=== PATIENT | male | born 1935 | race Asian ===

== ENCOUNTER 2020-01-25 15:21 | Emergency (ER) | payer MEDICARE, MEDICAID ==
[~2020-01-25] VITALS: Ht 167.6 cm; Wt 81.6 kg
[2020-01-25 15:30] VITALS: BP 118/62
--- NOTE | 2020-01-25 15:30 | NUR ---
ED Nurse Note: Pt brought in by ambulance from [facility] s/p syncopal, ground level fall. Denies head injury. Pt c/o right leg pain. Pt is SOB, with Ow sat 96% on room air. HR 60 on the monitor. All other vitals stable as documented. A+Ox4, uzbek speaking. Denies n/v/d.
--- NOTE | 2020-01-25 16:09 | NUR ---
ED Nurse Note: urine sent to lab, xray @ bedside
[2020-01-25 16:10] LABS: HEMOGLOBIN 8.2 G/DL (14.2-18.0); MEAN CORPUSCULAR VOLUME 110 FL (80-99); PLATELET COUNT 50 K/UL (150-450); RED BLOOD COUNT 2.37 M/UL (4.70-6.10); RED CELL DISTRIBUTION WIDTH 17.5 % (11.6-14.8); WHITE BLOOD COUNT 5.3 K/UL (4.8-10.8)
--- NOTE | 2020-01-25 16:16 | Emergency Room Report ---
History of Present Illness General Chief Complaint: Multiple Trauma/Fall Source: Patient Present Illness HPI This patient is brought in by EMS. He was also accompanied by his daughter who witnessed the episode he presents for. The patient was at an auto shop awaiting his vehicle to be repaired. He and his daughter are standing together. She states that suddenly he crumpled to the ground and lost consciousness for about 10 seconds. She states that she had been holding onto his arm and so she was able to stop him from falling and hitting his head. Per report, initially he had been complaining of pain in his right leg. He states that the pain is completely gone. His daughter reports that he has had a lot of pain related to arthritis. He has been getting cortisone injections into his joints for the pain in his joints. There is been no recent illness. There is been no fever or chills. There is been no chest pain or shortness of breath. He has had no abdominal pain. There is been no dysuria or hematuria. He has been in his normal state of health. He does have significant past medical history of congestive heart failure status post CABG. The daughter notes that she has seen that his abdomen has become larger and he has had a decreased appetite over the past few days. The patient himself has no complaints and states that he would like to go home. With further discussion with the patient's daughter and the patient, he agreed to a basic evaluation to include a blood draw, chest x-ray and EKG. Allergies: Coded Allergies: No Known Allergies (Unverified , 01/25/20) COVID-19 Screening Contact w/high risk pt: No Experienced COVID-19 symptoms?: No COVID-19 Testing performed MALT LOADER: No Patient History Past Medical History: see triage record, DM, HTN, SD, CAD, CHF Past Surgical History: CABG Social History: Denies: smoking, alcohol use, drug use Reviewed Nursing Documentation: PMH: Agreed; PSxH: Agreed Nursing Documentation-PMH Past Medical History: No History, Except For Hx Hypertension: Yes Hx Diabetes: Yes Review of Systems All Other Systems: negative except mentioned in HPI Physical Exam Vital Signs Date Time Temp Pulse Resp B/P (MAP) Pulse Ox O2 Delivery O2 Flow Rate FiO2 01/25/20 15:20 97.5 55 16 92/51 (65) 96 Room Air Sp02 EP Interpretation: reviewed, normal General Appearance: no apparent distress, alert, GCS 15, non-toxic Head: normocephalic, atraumatic Eyes: bilateral eye normal inspection, bilateral eye PERRL ENT: hearing grossly normal, normal pharynx, no angioedema, normal voice Neck: normal inspection, full range of motion, supple/symm/no masses Respiratory: chest non-tender, no respiratory distress, no retraction, no accessory muscle use, rales, speaking full sentences Cardiovascular #1: regular rate, rhythm, no edema Gastrointestinal: normal bowel sounds, non tender, soft, no guarding, no rebound, distended Rectal: deferred Musculoskeletal: normal inspection, back normal, normal range of motion, gait/ station normal - Normal for this patient/age., non-tender, swelling - +1 pitting edema Neurologic: alert, motor strength/tone normal, oriented x3, sensory intact, responsive, speech normal Psychiatric: judgement/insight normal, memory normal, mood/affect normal, no suicidal/homicidal ideation Skin: other - ecchymosis on R. forearm Medical Decision Making Diagnostic Impression: Primary Impression: Syncope Additional Impressions: Anemia Renal failure Thrombocytopenia CHF exacerbation ER Course This elderly male is found to have multiple abnormal findings on his work-up. He has anemia and thrombocytopenia. He also has renal failure. I am unsure of the acuity of these findings on laboratory work-up. The patient has never been at this facility and I do not have any comparison labs. The daughter the patient did not know if any of these findings are baseline for this patient. I did page the patient's primary care physician but at the time of this dictation this physician Dr. Carrie Tovar has not yet called back. I had planned on admitting this patient for further work-up for not only his syncope but his anemia, renal failure and thrombocytopenia. Further, I am concerned he also has a CHF exacerbation given the lower extremity edema and abdominal swelling that is likely ascites. Apparently, the patient's family member about a month ago and he has been depressed. I impressed upon the patient's daughter and the patient that he should be admitted for these findings. However, the patient adamantly refused. The daughter was bedside with the patient and states that she will have her father follow-up closely with his primary care physician who he trusts. She indicated understanding of his medical condition as did he. It was explained that if his anemia were to worsen or if he had a GI bleed he could potentially from this. The patient continued to decline admission to the hospital. The patient left AGAINST MEDICAL ADVICE. Laboratory Tests Test 01/25/20 16:00 01/25/20 17:45 White Blood Count 5.3 K/UL (4.8-10.8) 5.5 K/UL (4.8-10.8) Red Blood Count 2.37 M/UL (4.70-6.10) L 2.36 M/UL (4.70-6.10) L Hemoglobin 8.2 G/DL (14.2-18.0) L 8.2 G/DL (14.2-18.0) L Hematocrit 26.0 % (42.0-52.0) L 26.4 % (42.0-52.0) L Mean Corpuscular Volume 110 FL (80-99) H 112 FL (80-99) H Mean Corpuscular Hemoglobin 34.6 PG (27.0-31.0) H 34.8 PG (27.0-31.0) H Mean Corpuscular Hemoglobin Concent 31.6 G/DL (32.0-36.0) L 31.1 G/DL (32.0-36.0) L Red Cell Distribution Width 17.5 % (11.6-14.8) H 16.6 % (11.6-14.8) H Platelet Count 50 K/UL (150-450) L 51 K/UL (150-450) L Mean Platelet Volume 8.1 FL (6.5-10.1) 8.7 FL (6.5-10.1) Neutrophils (%) (Auto) % (45.0-75.0) 66.6 % (45.0-75.0) Lymphocytes (%) (Auto) % (20.0-45.0) 18.3 % (20.0-45.0) L Monocytes (%) (Auto) % (1.0-10.0) 10.7 % (1.0-10.0) H Eosinophils (%) (Auto) % (0.0-3.0) 2.8 % (0.0-3.0) Basophils (%) (Auto) % (0.0-2.0) 1.7 % (0.0-2.0) Differential Total Cells Counted 100 Neutrophils % (Manual) 69 % (45-75) Lymphocytes % (Manual) 19 % (20-45) L Monocytes % (Manual) 9 % (1-10) Eosinophils % (Manual) 1 % (0-3) Basophils % (Manual) 2 % (0-2) Band Neutrophils 0 % (0-8) Platelet Estimate Decreased L Platelet Morphology Normal Polychromasia 1+ Hypochromasia 1+ Anisocytosis 1+ Macrocytosis 2+ Urine Color Pale yellow Urine Appearance Clear Urine pH 5 (4.5-8.0) Urine Specific [place] 1.010 (1.005-1.035) Urine Protein 2+ (NEGATIVE) H Urine Glucose (UA) Negative (NEGATIVE) Urine Ketones Negative (NEGATIVE) Urine Blood Negative (NEGATIVE) Urine Nitrite Negative (NEGATIVE) Urine Bilirubin Negative (NEGATIVE) Urine Urobilinogen Normal MG/DL (0.0-1.0) Urine Leukocyte Esterase Negative (NEGATIVE) Urine RBC 0-2 /HPF (0 - 0) H Urine WBC 0-2 /HPF (0 - 0) Urine Squamous Epithelial Cells None /LPF (NONE/OCC) Urine Bacteria Occasional /HPF (NONE) Urine Hyaline Casts 10-15 /LPF (NONE) H Sodium Level 138 MMOL/L (136-145) Potassium Level 5.1 MMOL/L (3.5-5.1) Chloride Level 106 MMOL/L (98-107) Carbon Dioxide Level 20 MMOL/L (21-32) L Anion Gap 12 mmol/L (5-15) Blood Urea Nitrogen 50 mg/dL (7-18) H Creatinine 2.5 MG/DL (0.55-1.30) H Estimated Glomerular Filtration Rate 24.8 mL/min (>60) Glucose Level 118 MG/DL (74-106) H Calcium Level 8.9 MG/DL (8.5-10.1) Total Bilirubin 0.5 MG/DL (0.2-1.0) Aspartate Amino Transferase (AST) 29 U/L (15-37) Alanine Aminotransferase (ALT) 27 U/L (12-78) Alkaline Phosphatase 76 U/L (46-116) Total Creatine Kinase 150 U/L (26-308) Troponin I 0.003 ng/mL (0.000-0.056) Pro-B-Type Natriuretic Peptide 5032 pg/mL (0-125) H Total Protein 7.5 G/DL (6.4-8.2) Albumin 3.8 G/DL (3.4-5.0) Globulin 3.7 g/dL Albumin/Globulin Ratio 1.0 (1.0-2.7) EKG Diagnostic Results Rate: bradycardiac Rhythm: other - S.callie ST Segments: no acute changes Other Impression RBBB Rhythm Strip Diag. Results EP Interpretation: yes Rate: 50's Rhythm: no PVC's, no ectopy, other - S.callie Chest X-Ray Diagnostic Results Chest X-Ray Diagnostic Results : Chest X-Ray Ordered: Yes # of Views/Limited/Complete: 1 View Indication: Other EP Interpretation: Yes Interpretation: no consolidation, no effusion, no pneumothorax, no acute cardiopulmonary disease Impression: No acute disease Electronically Signed by: Kiera Puri DO Last Vital Signs Date Time Temp Pulse Resp B/P (MAP) Pulse Ox O2 Delivery O2 Flow Rate FiO2 01/25/20 15:20 97.5 55 16 92/51 (65) 96 Room Air Status: improved Disposition: AGAINST MEDICAL ADVICE Condition: Serious Referrals: NON PHYSICIAN (PCP) Kiera Puri DO Jan 25, 2020 16:16
[2020-01-25 16:27] LABS: ANION GAP 12 mmol/L (5-15); BLOOD UREA NITROGEN 50 mg/dL (7-18); CALCIUM 8.9 MG/DL (8.5-10.1); CARBON DIOXIDE 20 MMOL/L (21-32); CHLORIDE 106 MMOL/L (98-107); CREATININE 2.5 MG/DL (0.55-1.30); POTASSIUM 5.1 MMOL/L (3.5-5.1); SODIUM 138 MMOL/L (136-145)
[2020-01-25 16:39] LABS: ALANINE AMINOTRANSFERASE 27 U/L (12-78); ALBUMIN 3.8 G/DL (3.4-5.0); ALKALINE PHOSPHATASE 76 U/L (46-116); ASPARTATE AMINO TRANSFERASE 29 U/L (15-37); BILIRUBIN,TOTAL 0.5 MG/DL (0.2-1.0); CREATINE KINASE 150 U/L (26-308)
[2020-01-25 16:54] LABS: APPEARANCE,URINE CLEAR; BILIRUBIN, URINE NEGATIVE (NEGATIVE); COLOR,URINE PALE YELLOW; GLUCOSE, URINE (UA) NEGATIVE (NEGATIVE); KETONES,URINE NEGATIVE (NEGATIVE); LEUKOCYTE ESTERASE ,URINE NEGATIVE (NEGATIVE); NITRITE,URINE NEGATIVE (NEGATIVE); PH,URINE 5 (4.5-8.0); PROTEIN,URINE 2+ (NEGATIVE); UROBILINOGEN,URINE NORMAL MG/DL (0.0-1.0)
--- NOTE | 2020-01-25 17:26 | NUR ---
ED Nurse Note: CBC sent to lab
[2020-01-25 18:03] LABS: HEMATOCRIT 26.4 % (42.0-52.0); HEMOGLOBIN 8.2 G/DL (14.2-18.0); MEAN CORPUSCULAR VOLUME 112 FL (80-99); PLATELET COUNT 51 K/UL (150-450); RED BLOOD COUNT 2.36 M/UL (4.70-6.10); RED CELL DISTRIBUTION WIDTH 16.6 % (11.6-14.8); WHITE BLOOD COUNT 5.5 K/UL (4.8-10.8)
--- NOTE | 2020-01-25 18:08 | Diagnostic Imaging Report ---
Indication: Chest pain Technique: One view of the chest Comparison: none Findings: There is atelectasis and possibly some pleural fluid at the left lung base. Lungs pleural spaces are otherwise clear. The heart size is upper limits of normal. There is evidence of prior CABG Impression: Left basilar atelectasis and possible pleural fluid
[2020-01-25 18:11] LABS: BASOPHILS % (AUTO) 1.7 % (0.0-2.0); EOSINOPHILS % (AUTO) 2.8 % (0.0-3.0); LYMPHOCYTES % (AUTO) 18.3 % (20.0-45.0); MONOCYTES % (AUTO) 10.7 % (1.0-10.0); NEUTROPHILS % (AUTO) 66.6 % (45.0-75.0)
[2020-01-25 18:51] VITALS: BP 125/74
--- NOTE | 2020-01-25 18:51 | NUR ---
AMA: SEE AMA FORM. Pt's daughter at bedside. Pt and daughter both aware that ED MD wants to admit patient upstairs. Pt's daughter attempting to convince patient to stay, but he wants to go home. Pt and daughter both aware of risks of leaving. ED MD, nurse and charge nurse explained benefits of staying and risks of leaving. Pt still refused. Lao speaking staff translated for patient as well as daughter, pt verbalized understanding of risks and still refused to stay. AMA form signed by patient and doctor. IV and ID removed. Pt in stable condition, A+Ox4, no acute distress noted. Pt wheeled out to private vehicle safely.
--- NOTE | 2020-01-25 18:51 | NUR ---
ED Nurse Note: pt to see PMD tomorrow. lab report provided for patient to give to PMD
== END 2020-01-25 18:51 | disposition left against medical advice (07) ==
LOC: EDBD 15:21 → EMR 15:52 → CANBEDREQ 18:51
DX: R55 Syncope and collapse (principal); D64.9 Anemia, unspecified; N19 Unspecified kidney failure; D69.6 Thrombocytopenia, unspecified; I50.9 Heart failure, unspecified; E11.9 Type 2 diabetes mellitus without complications; I10 Essential (primary) hypertension; I25.2 Old myocardial infarction; Z95.1 Presence of aortocoronary bypass graft; Z53.29 Procedure and treatment not carried out because of patient's decision for other reasons
CPT/HCPCS: 36415; 71045; 80053; 81003; 82550; 83880; 84484; 85007; 85025; 93005; 99283